=== PATIENT | male | born 1945 | race Caucasian/White ===

== ENCOUNTER → 2016-11-26 | Outpatient (CLI) | payer MEDICARE, MEDICAID | END | disposition home or self-care (01) | LOC: EDBD 11:59 → RAD 11:59 | PROVIDERS: ATTEND Podiatrist Foot & Ankle Surgery | DX: M79.671 Pain in right foot (principal) | CPT/HCPCS: 73630 ==

== ENCOUNTER 2016-12-02 11:58 | Emergency (ER) | payer MEDICARE, MEDICAID ==
[~2016-12-02] VITALS: Ht 165.1 cm; Wt 78.8 kg
[2016-12-02] MEDS ORDERED: LEVO50TA8 PO (12:19)
[2016-12-02] MEDS ORDERED: LEVE500T19 PO (12:19)
[2016-12-02] MEDS ORDERED: ATOR20TA65 PO (12:19)
[2016-12-02] MEDS ORDERED: ALEN70TA46 PO (12:19)
[2016-12-02] MEDS ORDERED: MIRA50TA PO (12:19)
[2016-12-02] MEDS ORDERED: TAMS0.4C31 PO (12:19)
[2016-12-02 14:16] LABS: BASOPHILS % 0.4 % (0.0-2.0); EOSINOPHILS % 3.5 % (0.0-5.0); HEMATOCRIT. 40.5 % (42.0-52.0); HEMOGLOBIN. 13.9 g/dL (14.0-18.0); LYMPHOCYTES % 14.7 % (20.0-50.0); MEAN CORPUSCULAR HEMOGLOBIN 32.1 pg (28.0-32.0); MEAN CORPUSCULAR VOLUME 93.7 fL (80.0-94.0); MEAN PLATELET VOLUME 8.1 fl (7.4-10.4); MONOCYTES % 7.8 % (2.0-8.0); NEUTROPHILS % 73.6 % (40.0-76.0); PLATELET 130 x1000/uL (130-400); RED BLOOD CELL COUNT 4.32 mill/uL (4.7-6.1); RED CELL DISTRIBUTION WIDTH 13.1 % (11.6-14.6)
[2016-12-02] MEDS ORDERED: BENZONATATE 100MG CAPSULE PO ONE (14:45)
[2016-12-02 14:55] VITALS: BP 139/78
[2017-01-20] MEDS ORDERED: DOXA2TAB2 PO (22:33)
[2017-01-20] MEDS ORDERED: TAMS0.4C31 PO (22:33)
[2017-01-22] MEDS ORDERED: ASPI-1159 PO (10:53)
[2017-01-22] MEDS ORDERED: LEVO88TA2 PO (10:53)
== END 2016-12-02 15:11 | disposition home or self-care (01) ==
LOC: ER 12:59
DX: R05 Cough (principal); G40.909 Epilepsy, unspecified, not intractable, without status epilepticus; E78.00 Pure hypercholesterolemia, unspecified; N40.0 Benign prostatic hyperplasia without lower urinary tract symptoms; Z96.643 Presence of artificial hip joint, bilateral
CPT/HCPCS: 36415; 71010; 85025; 99285